=== PATIENT | female | born 1950 | race Caucasian/White ===

== ENCOUNTER 2017-08-08 07:11 | Emergency (ER) | payer BC, OTHER ==
--- NOTE | 2017-08-08 07:59 | CT ---
CT BRAIN WITHOUT CONTRAST: HISTORY: Fall with trauma to the back of the head, head pain. FINDINGS: No evidence of acute infarct, hemorrhage, midline shift, or abnormal extraaxial fluid collections is seen. There are changes of mild chronic small-vessel ischemic disease. The ventricular size is norm al and the basilar cisterns are patent. A nondisplaced fracture is seen in the right occipital bone. There is mild mucosal disease in the paranasal sinuses. IMPRESSION: 1. Nondisplaced right occipital bone fracture. 2. No CT evidence of acute intracranial process. POS: [facility]
--- NOTE | 2017-08-08 08:01 | CT ---
CT CERVICAL SPINE WITH CORONAL AND SAGITTAL REFORMATIONS: History Fall with trauma to the back of her head. FINDINGS: There are degenerative changes in the cervical spine. No fracture or dislocation is seen in the cerv ical spine. Incidental note is made of a nondisplaced fracture of the right occipital bone. POS: [facility]
--- NOTE | 2017-08-08 08:02 | RAD ---
AP PELVIS: History Fall, left hip pain. FINDINGS/IMPRESSION: No acute fracture or dislocation is identified. POS: [facility]
--- NOTE | 2017-08-08 08:02 | RAD ---
LEFT HIP 2 VIEWS: HISTORY: Fall, left hip pain. FINDINGS/IMPRESSION: No acute fracture or dislocation is identified. If there is high clinical suspicion for a left hip f racture, further evaluation with CT scan should be performed. POS: [facility]
== END 2017-08-08 08:44 | disposition home or self-care (01) ==
LOC: ERS 07:11
DX: S02.119A Unspecified fracture of occiput, initial encounter for closed fracture (principal); S39.011A Strain of muscle, fascia and tendon of abdomen, initial encounter; G35 Multiple sclerosis; W01.10XA Fall on same level from slipping, tripping and stumbling with subsequent striking against unspecified object, initial encounter
CPT/HCPCS: 70450; 72125; 72170

== ENCOUNTER 2017-09-17 10:08 | Outpatient (CLI) | payer OTHER ==
--- NOTE | 2017-09-17 12:19 | CT ---
HEAD CT NONCONTRAST: INDICATIONS: Fall. Head injury. Pain. COMPARISON: 08/08/2017 FINDINGS: There is no acute intracranial hemorrhage, mass effect, or midline shift. There is mild chronic micr ovascular ischemic disease. Mild scattered paranasal sinus mucosal thickening is present. IMPRESSION: No acute intracranial abnormalities. POS: [facility]
== END 2017-09-17 10:09 | disposition home or self-care (01) ==
LOC: TBSIIMAG 10:08
PROVIDERS: ATTEND Neurological Surgery
DX: S02.91XA Unspecified fracture of skull, initial encounter for closed fracture (principal)
CPT/HCPCS: 70450

== ENCOUNTER 2023-10-17 19:28 | Emergency (ER) | payer MEDICARE, OTHER ==
[2023-10-17 20:47] LABS: #Monocytes 0.7 thou/uL (0.11-0.59); #Neutrophils 11.7 thou/uL (1.40-6.50); %Basophils 0.2 % (0.0-1.0); %Monocytes 5.2 % (0.0-10.0); %Neutrophils 91.3 % (42.0-75.0); Mean Corpuscular HGB CONC 34.1 g/dL (32.0-36.0); Mean Corpuscular Hemoglobin 30.4 pg (27.0-31.0); Mean Corpuscular Volume 89.1 fl (78.0-98.0); Mean Platelet Volume 9.3 fL (7.4-10.4); Platelet Count 216 10x3/uL (130-400); RBC Distribution Width 12.7 % (11.5-14.5); White Blood Cell (WBC) Count 12.8 10x3/uL (4.8-10.8)
[2023-10-17 20:49] LABS: Bacteria/HPF None Seen HPF (None Seen); Bilirubin Negative (Negative); Blood, Urine Negative (Negative); CAUTI Indications for Culture Immunosuppressed; Clarity Clear (Clear); Glucose, Urine (Dipstick) Normal (Negative); Ketone, Urine Negative (Negative); Leukocyte 75 Leu/uL (Negative); Nitrite Negative (Negative); Protein, Urine (Dipstick) Negative (Neg-Trace); RBC/HPF 0-3 HPF (0-3); Specific Gravity, Urine 1.003 (1.002-1.036); Squamous Epithelial None Seen HPF (0-3); Urobilinogen Normal mg/dL (Less than 2); WBC/HPF 0-3 HPF (0-3); pH, Urine 5.5 (5.0-9.0)
[2023-10-17 20:52] LABS: Urine Culture Reflex Yes Yes
[2023-10-17 21:04] LABS: ALT (SGPT) 17 U/L (8-55); AST (SGOT) 21 U/L (5-34); Albumin 4.3 g/dL (3.4-4.8); Alkaline Phosphatase 64 U/L (40-110); Anion Gap 13 mmol/L (10-20); BUN (Urea Nitrogen) 7 mg/dL (9.8-20.1); Bilirubin, Total 1.1 mg/dL (0.2-1.2); Calc. Creatinine Clearance 0 mL/min (70-130); Calcium 9.9 mg/dL (7.8-10.44); Carbon Dioxide 23 mmol/L (23-31); Chloride 104 mmol/L (98-107); Estimated GFR 94; Globulin 3.2 g/dL (2.4-3.5); Glucose 121 mg/dL (83-110); Potassium 3.9 mmol/L (3.5-5.1); Protein, Total 7.5 g/dL (5.8-8.1); Sodium 136 mmol/L (136-145)
[2023-10-17 21:08] LABS: Troponin I Less than 0.010 ng/mL (< 0.028)
[2023-10-17] MEDS ORDERED: Ondansetron PF 4 MG/2 ML Vial ONE (21:08)
[2023-10-17 21:26] LABS: Influenza A by NAA Not Detected (NotDetected); Influenza B by NAA Not Detected (NotDetected); SARS-CoV-2 NAA Rapid Test Not Detected (NotDetected)
== END 2023-10-17 23:39 | disposition home or self-care (01) ==
LOC: ERS 19:28
DX: R68.83 Chills (without fever) (principal); R53.1 Weakness; I10 Essential (primary) hypertension; Z55.0 Illiteracy and low-level literacy
CPT/HCPCS: 0240U; 70450; 71045; 80053; 81001; 83605; 84484; 85025; 87040; 87086; 93005; 36415; 96361; 96374; J2405